=== PATIENT | female | born 1975 | race Asian ===

== ENCOUNTER 2022-10-29 18:05 | Inpatient (IN) | payer SELFPAY ==
[2022-10-29] VITALS (11 sets, daily range): BP systolic 144–177; BP diastolic 109–129; PULSE 89–108; RESP 16–28; TEMP 36.6–36.7; O2SAT 95–97; BMI 19.2; BMI 21.5; BMI 22.6
--- NOTE | 2022-10-29 18:17 | ED.RN ---
SPOKE WITH DR. MARIE ABOUT PATIENT SYMPTOMS. NO STROKE ALERT AT THIS TIME.
[2022-10-29 18:55] LABS: Bedside Glucose 360 mg/dL (74-106)
--- NOTE | 2022-10-29 19:04 | EKG12_ITS ---
Test Reason : DYSRHYTHMIA Blood Pressure : / mmHG Vent. Rate : 096 BPM Atrial Rate : 096 BPM P-R Int : 206 ms QRS Dur : 090 ms QT Int : 368 ms P-R-T Axes : 040 -01 034 degrees QTc Int : 464 ms Normal sinus rhythm Nonspecific ST abnormality Poor R wave progression Abnormal ECG Confirmed by TOMAS PONCE, LUZMARIA ([id number]), staff editor DANNY GARCIA ([id number]) on 11/03/2022 1:00:09 PM Referred By: GILDA Confirmed By:LUZMARIA MARIN MD
--- NOTE | 2022-10-29 19:04 | CT_ITS ---
We are attempting to reach an attending provider to discuss findings. An addendum with communication details will be sent when the communication is complete. INDICATION: Neuro deficit, acute, stroke suspected EXAMINATION: CT BRAIN - CT Head Stroke Protocol W/O Contrast Injection TECHNIQUE: Multiple axial images were obtained of the head without intravenous contrast. A radiation dose optimization technique was used for this scan. IV Contrast dosage and agent: None. COMPARISON: None FINDINGS: BRAIN PARENCHYMA: No intra- or extra-axial hemorrhage. No evidence of acute infarct. Moderate subcortical and periventricular white matter disease. Old left cory focal infarct. No intracranial mass or mass effect. There is preservation of the waller/white matter interface. Posterior fossa structures are unremarkable. CSF SPACES: Appropriate for age. No hydrocephalus. Basal cisterns are patent. CALVARIUM, SKULL BASE, PARANASAL SINUSES AND MASTOID AIR CELLS: Clear. No discrete lytic or blastic abnormalities. ORBITS: Both globes, extraocular muscles, optic nerves and retrobulbar fat appear unremarkable. ASPECTS Score for Acute Strokes: 10 CT/STROKE Brain/Head without Cont IMPRESSION: No acute abnormal intracranial finding. Electronically Signed: Chin Del Rosario MD at 19:27 EST ,
--- NOTE | 2022-10-29 19:04 | EDS_ITS ---
HPI History of Present Illness Chief Complaint: Hypertension Narrative Narrative: Patient arrives via private car, symptoms started 7 hours ago. Apparently she has significant weakness, disconjugate gaze on the left and left arm and leg weakness that have somewhat improved. No trauma, no head injury, history was initially limited secondary to patient being [place] and not speaking any Emirati, I got the history through hospital approved translation services, I got the history from , as well as patient. She does have a history of hypertension but she recently moved from [place], she is taking her medications but they are the counter medications from [place] and she does not have a list of them now [facility] Medical History (Updated 10/29/22 @ 21:[address] Chin Romero MD) Hypertension Allergy/AdvReac Type Severity Reaction Status Date / Time No Known Allergies Allergy Verified 10/29/22 18:17 Social History Smoking Status: Current every day smoker tobacco type: e-cigarettes ROS ROS ED ROS Narrative Past medical history: Reviewed Medications: Reviewed Social history: Noncontributory Review of systems: All systems negative except as indicated General: No fever Eyes: Blurred vision on the left ENT: No upper airway congestion, slurred speech Neck: No neck pain Cardiovascular: No chest pain Respiratory: No shortness of breath or cough Gastrointestinal: No abdominal pain, nausea vomiting or diarrhea Genitourinary: No dysuria Musculoskeletal: Denies myalgias no difficulty with ambulation Skin: No rash Neurological: As in HPI Psych: No recent behavioral changes Hematologic: No easy bleeding or easy bruising EXAM Physical Exam Narrative Exam Narrative: Physical exam General: Well nourished, Well developed, No Acute Distress Head: Normocephalic, Atraumatic Eyes: Left-sided disconjugate gaze ENT: Moist mucous membranes Neck: Supple, Nontender, No lymphadenopathy Cardiovascular: Regular rate, Regular rhythm Respiratory: No distress, CTA bilaterally Abdomen: Soft, Nontender, Nondistended Back: Nontender, Normal Inspection. Negative for: CVA tenderness Extremities: Nontender, No edema Skin: Normal color, No rash Neurological: See NIH stroke scale Psychological: Normal affect Const Vital Signs: 10/29/22 18:06 10/29/22 19:08 10/29/22 19:08 Temperature 98 F Temperature Source Temporal Pulse Rate 108 H 102 H Respiratory Rate 16 16 Blood Pressure 151/129 H 165/116 H Blood Pressure Mean 136 132 Pulse Ox 96 97 97 Oxygen Delivery Method Room Air Room Air Room Air 10/29/22 19:14 10/29/22 19:34 10/29/22 20:04 Temperature Temperature Source Pulse Rate 105 H 102 H 95 Respiratory Rate 20 H 28 H 24 H Blood Pressure 165/116 H 177/122 H 153/109 H Blood Pressure Mean 132 140 123 Pulse Ox 97 97 97 Oxygen Delivery Method Room Air Room Air Room Air 10/29/22 20:30 10/29/22 21:00 10/29/22 21:30 Temperature Temperature Source Pulse Rate 102 H 101 H 96 Respiratory Rate 24 H 21 H 24 H Blood Pressure 169/126 H 152/109 H 144/113 H Blood Pressure Mean 140 123 123 Pulse Ox 96 95 95 Oxygen Delivery Method Room Air Room Air Room Air MDM MDM MDM Narrative Medical decision making narrative: Patient has an acute stroke however she did not meet criteria for tPA due to the fact that she was 6 hours after the onset of symptoms, she had a CT angiogram which was unremarkable she will need a work-up inpatient including MRI, patient was discussed with stroke neurologist and stroke radiologist. She can stay and get a work-up. I also talked to the hospitalist. Hypertension improved, patient is hyperglycemic she will need glycemic control which can be done inpatient. Lab Data Labs: Laboratory Results - last 24 hr 10/29/22 10/29/22 10/29/22 18:29 18:30 18:30 WBC 8.4 RBC 5.78 H Hgb 16.0 H Hct 47.1 H MCV 81.5 MCH 27.7 MCHC 34.0 RDW Std Deviation 38.8 RDW Coeff of Naresh 13.3 Plt Count 282 MPV 11.7 Immature Gran % (Auto) 0.200 Neut % (Auto) 65.1 Lymph % (Auto) 28.0 [place] % (Auto) 4.1 Eos % (Auto) 1.3 Baso % (Auto) 1.3 H Absolute Neuts (auto) 5.5 Absolute Lymphs (auto) 2.36 Nucleated RBC % 0 PT 11.8 INR 0.9 APTT 28.1 Sodium Potassium Chloride Carbon Dioxide Anion Gap BUN Creatinine Estim Creat Clear Calc Est GFR (MDRD) Af Amer Est GFR (MDRD) Non-Af BUN/Creatinine Ratio Glucose Calcium Troponin I High Sens POC Glucose 360 H 10/29/22 18:30 WBC RBC Hgb Hct MCV MCH MCHC RDW Std Deviation RDW Coeff of Naresh Plt Count MPV Immature Gran % (Auto) Neut % (Auto) Lymph % (Auto) [place] % (Auto) Eos % (Auto) Baso % (Auto) Absolute Neuts (auto) Absolute Lymphs (auto) Nucleated RBC % PT INR APTT Sodium 133 L Potassium 3.6 Chloride 94 L Carbon Dioxide 28.0 Anion Gap 11 BUN 17 Creatinine 0.95 Estim Creat Clear Calc 56.66 Est GFR (MDRD) Af Amer 80 Est GFR (MDRD) Non-Af 66 BUN/Creatinine Ratio 17.8 Glucose 396 H Calcium 10.5 H Troponin I High Sens 11 POC Glucose Radiography Diagnostic Testing: Clinical Impression(s) from Imaging Studies Brain CT 10/29/22 19:04 IMPRESSION: No acute abnormal intracranial finding. Electronically Signed: Chin Del Rosario MD at 19:27 EST , ADDENDUM: 10/29/221939 IMPRESSION: No acute abnormal intracranial finding. N.B. : The above Results were Read Back by Chin Del Rosario MD to Gloria Kovacs RN, and understanding confirmed on 10/29/2022 19:33:50 (ET). Electronically Signed: Chin Del Rosario MD at 19:27 EST , Head/Neck CTA 10/29/22 19:04 IMPRESSION: Negative CTA Carotid and CTA Brain. Electronically Signed: Chin Del Rosario MD at 19:48 EST , ADDENDUM: 10/29/222007 IMPRESSION: Negative CTA Carotid and CTA Brain. N.B. : The above Results were Read Back by Chin Del Rosario MD to Chin Romero MD, and understanding confirmed on 10/29/2022 20:01:19 (ET). Electronically Signed: Chin Del Rosario MD at 19:48 EST , Chest X-Ray 10/29/22 19:50 IMPRESSION: No radiographic evidence of acute cardiopulmonary disease. Electronically Signed: Chin Del Rosario MD at 20:30 EST , Chest x-ray read by hi is unremarkable. EKG Initial EKG: Comments: Normal sinus rhythm with a rate of 96. Normal IL and QTc intervals. Nonspecific ST changes throughout. Interpreted by emergency Dr. Discharge Plan Triage Chief Complaint: Hypertension ED Provider: Chin Romero Dx/Rx/DC Orders Clinical Impression: Acute CVA (cerebrovascular accident), Hypertension, Acute hyperglycemia Primary Care Provider: Care Physician,No Primary Referrals: Care Physician,No Primary [Primary Care Provider] - Disposition Disposition: Acute Care Hospital [facility] NIHSS NIHSS 1a. Level of Consciousness: Alert; keenly responsive 1b. LOC Questions: Answers BOTH questions correctly. 1c. LOC Commands: Performs both tasks correctly. 2. Best Gaze: Partial gaze palsy; 3. Visual: No visual loss 4. Facial Palsy: Normal symmetrical movements 5a. Left Arm: No drift; arm holds 90 (or 45) degrees for full 10 seconds 5b. Right Arm: No drift; arm holds 90 (or 45) degrees for full 10 seconds 6a. Left Leg: No drift; leg holds 30-degree position for full 5 seconds 6b. Right Leg: No drift; leg holds 30-degree position for full 5 seconds 7. Limb Ataxia: Present in 1 limb 8. Sensory: Normal; no sensory loss 9. Best Language: No aphasia; normal 10. Dysarthria: Dorn-ee-[id number] dysarthria; 11. Extinction and Inattention: No abnormality Total: 3 Stroke Questions Stroke Team Activated: Yes a.Reviewed Inclusion/Exclusion criteria: Yes Was Patient considered for Endovascular Intervention?: Yes IV TPA Administered: No (Patient was 6 hours after the onset of symptoms) Critical care time (excluding procedures): Performing Direct Patient Care at Bedside
--- NOTE | 2022-10-29 19:04 | CT_ITS ---
We are attempting to reach an attending provider to discuss findings. An addendum with communication details will be sent when the communication is complete. INDICATION: Neuro deficit, acute, stroke suspected EXAMINATION: CTA head and neck TECHNIQUE: Routine carotid CT angiogram protocol was performed without and with IV contrast. In addition, images were obtained of the [place]. NASCET criteria using the distal ICAs for comparison were used for evaluation of stenoses. 3D reconstructions were reviewed. A radiation dose optimization technique was used for this scan. IV Contrast dosage and agent: 94 cc [id number] COMPARISON: Concurrent head CT FINDINGS: --CTA NECK: AORTIC ARCH AND BRANCHES: Normal anatomy, patent. RIGHT CCA: No occlusion, significant stenosis or dissection. RIGHT ICA: No occlusion, significant stenosis or dissection. LEFT CCA: No occlusion, significant stenosis or dissection. LEFT ICA: No occlusion, significant stenosis or dissection. RIGHT VERTEBRAL ARTERY: No occlusion, significant stenosis or dissection. LEFT VERTEBRAL ARTERY: No occlusion, significant stenosis or dissection. NECK SOFT TISSUES: Unremarkable. --CTA HEAD: --Anterior circulation: ICAs: No significant stenosis at the intracranial/visualized segments. ACAs: No significant stenosis at the visualized segments. ACOM: Present. MCAs: No significant stenosis at the visualized segments. --Posterior circulation: PCOMs: Not identified. territory supervisor: No significant stenosis at the visualized segments. BASILAR ARTERY: No significant stenosis. VERTEBRAL ARTERIES: No significant stenosis at the intradural/visualized segments. No evidence of intracranial aneurysm or vascular malformation. CT/STROKE CTA Head AND Neck W/Con IMPRESSION: Negative CTA Carotid and CTA Brain. Electronically Signed: Chin Del Rosario MD at 19:48 EST ,
--- NOTE | 2022-10-29 19:13 | ED.RN ---
osu called at 7:05p
[2022-10-29 19:45] LABS: Absolute Lymphocyte Count 2.36 X10^3/uL (0.83-4.51); Absolute Neutrophil Count 5.5 X10^3/uL (2.0-7.7); Basophil# 0.11 X10^3/uL; Basophil% 1.3 % (0-1); Eosinophil# 0.11 X10^3/uL; Eosinophils% 1.3 % (0-5); Hematocrit 47.1 % (37-47); Lymphocyte # 2.36 X10^3/ul (0.83-4.51); Mean Corpuscular Hgb 27.7 pg (27.0-32.0); Mean Corpuscular Volume 81.5 fL (81-99); Mean Platelet Vol. 11.7 fl (6.2-12.0); Monocyte# 0.35 X10^3/uL; Monocyte% 4.1 % (0-10); NRBC Flagged by Analyzer 0 % (0-5); Neutrophil # 5.49 X10^3/uL (2.7-7.7); Neutrophil % 65.1 % (47-70); Platelet Count 282 K/mm3 (150-450); RBC Distribution Width CV 13.3 % (11.6-14.6); RBC Distribution Width SD 38.8 fl (35.1-43.9); Red Blood Count 5.78 M/mm3 (4.2-5.4); White Blood Count 8.4 K/mm3 (4.4-11.0)
[2022-10-29 19:48] LABS: International Normalized Ratio 0.9; Prothrombin Time (Protime)PT. 11.8 SECONDS (11.7-14.9)
[2022-10-29 19:49] LABS: Partial Thromboplast Time 28.1 Seconds (24.1-36.2)
--- NOTE | 2022-10-29 19:50 | RAD_ITS ---
INDICATION: Neuro deficit, acute, stroke suspected EXAMINATION/TECHNIQUE: X-RAY - XR Chest 1 View COMPARISON: None. FINDINGS: LINES/DEVICES: None. LUNGS: No consolidation, edema or effusion. No pneumothorax. MEDIASTINUM AND CARDIOVASCULAR STRUCTURES: Cardiac silhouette not enlarged. Central airways and mediastinal contour are unremarkable. RAD/Chest 1 View IMPRESSION: No radiographic evidence of acute cardiopulmonary disease. Electronically Signed: Chin Del Rosario MD at 20:30 EST ,
[2022-10-29 20:07] LABS: Anion Gap 11 (5-15); BUN 17 mg/dL (7-18); BUN/Creat Ratio 17.8 RATIO (10-20); Calcium,Total 10.5 mg/dL (8.5-10.1); Chloride 94 mmol/L (98-107); Creatinine, Serum 0.95 mg/dL (0.55-1.02); EST Glomerular Filtration Rate 66 mL/min (>60); Est Glom Filt Rate - Afr Amer 80 mL/min (>60); Estimated Creatinine Clearance 56.66 ml/min; Glucose 396 mg/dL (74-106); Potassium 3.6 mmol/L (3.5-5.1); Sodium Level 133 mmol/L (136-145); Troponin-I HS 11 pg/mL (3.0-54.0)
--- NOTE | 2022-10-29 22:08 | HP.PCM.HOS_ITS ---
HPI - General General Date of Admission: 10/29/22 Date of Service: 10/29/22 Chief Complaint: L sided weakness HPI Narrative The patient is a 47 y/o F w/ PMHx: HTN, Diabetes mellitus type II on unclear medication regimen, recently moved to [place] who presents to the [facility] ED on 10/29/22 with history of onset approximately 7 to 8 hours prior to ED arrival notable left-sided upper and lower extremity weakness with associated disconjugate gaze which has been persistent although spouse does report is mildly improved since initial onset prompting ED evaluation. In the ED he initial NIH stroke scale 3 for partial gaze palsy, limb ataxia and mild to moderate dysarthria. Work-up in the ED included T 98, heart rate 108, BP 151/129, respiratory rate 16, 96% on room air, CBC with WC 8.4, hemoglobin 16, platelet 282 without marked shift, unremarkable coags, BMP with sodium 133, chloride 94, glucose 396, calcium 10.5, troponin 11, CT the brain with no acute intracranial findings, CTA head and neck with no acute findings of the carotid or the brain, chest x-ray with no acute cardiopulmonary findings, EKG with sinus rhythm with no acute evidence of ischemia. In the ED patient ministered full- strength aspirin therapy. [facility] Medical History (Updated 10/29/22 @ 23:[address] Gali Gasca MD) Diabetes mellitus, type 2 Hypertension Home Medications Unobtainable 10/29/22 [History Last Taken Unknown] Allergy/AdvReac Type Severity Reaction Status Date / Time No Known Allergies Allergy Verified 10/29/22 18:17 Family History (Updated 10/29/22 @ 23:[address] Gali Gasca MD) Mother Diabetes Father Diabetes Surgical History (Updated 10/29/22 @ 23:[address] Gali Gasca MD) No history of previous surgery Social History (Updated 10/29/22 @ 23:[address] Gali Gasca MD) household members: other details: Spouse, recently moved to [place]. Smoking Status: Never smoker alcohol intake: never substance use type: does not use ROS ROS Narrative Admission Review of Systems: CONSTITUTIONAL: No weight loss, fever, chills, + weakness or fatigue. HEENT: + Notable left-sided disconjugate gaze Eyes: No visual loss, blurred vision, double vision or yellow sclerae. Ears, Nose, Throat: No hearing loss, sneezing, congestion, runny nose or sore throat. SKIN: No rash or itching, lesions, wounds. CARDIOVASCULAR: No chest pain, chest pressure or chest discomfort, palpitations, edema, orthopnea, syncopal events. RESPIRATORY: No shortness of breath, cough or sputum, wheezing, hemoptysis. GASTROINTESTINAL: No anorexia, nausea, vomiting or diarrhea, abdominal pain, melena, BRBPR. GENITOURINARY: No dysuria, frequency, urgency or retention. NEUROLOGICAL: + Left-sided weakness, ataxia, disconjugate gaze, dysarthria. No headache, syncope, paralysis, change in bowel or bladder control, seizure. MUSCULOSKELETAL: No muscle, back pain, joint pain or stiffness. HEMATOLOGIC: No anemia, bleeding or bruising. LYMPHATICS: No enlarged nodes. No history of splenectomy. PSYCHIATRIC: No history of depression or anxiety. ENDOCRINOLOGIC: No reports of sweating, cold or heat intolerance. No polyuria or polydipsia. ALLERGIES: No history of asthma, hives, eczema or rhinitis. Vital Signs Vital Signs Vital Signs: 10/29/22 18:06 10/29/22 19:08 10/29/22 19:08 Temperature 98 F Temperature Source Temporal Pulse Rate 108 H 102 H Respiratory Rate 16 16 Blood Pressure 151/129 H 165/116 H Blood Pressure Mean 136 132 Pulse Ox 96 97 97 Oxygen Delivery Method Room Air Room Air Room Air 10/29/22 19:14 10/29/22 19:34 10/29/22 20:04 Temperature Temperature Source Pulse Rate 105 H 102 H 95 Respiratory Rate 20 H 28 H 24 H Blood Pressure 165/116 H 177/122 H 153/109 H Blood Pressure Mean 132 140 123 Pulse Ox 97 97 97 Oxygen Delivery Method Room Air Room Air Room Air 10/29/22 20:30 10/29/22 21:00 10/29/22 21:30 Temperature Temperature Source Pulse Rate 102 H 101 H 96 Respiratory Rate 24 H 21 H 24 H Blood Pressure 169/126 H 152/109 H 144/113 H Blood Pressure Mean 140 123 123 Pulse Ox 96 95 95 Oxygen Delivery Method Room Air Room Air Room Air Weight Weight: 117 lb 15.157 oz Body Mass Index (BMI) 21.5 Physical Exam Narrative Physical Examination: General: Awake, alert, oriented to self, place and recent events, discussing items through translation, remains cooperative, laying in the ED bed, fatigued appearing. Skin: Normal color, normal turgor, no icterus, no cyanosis. HEENT: AT/NC, EOM right eye appears intact, ongoing appearance of left disco njugate gaze, PERRLA, dry MM, no carotid bruits or JVD noted. Lungs: Mild diminished, greater bases, appropriate effort, no rales, ronchi or wheezing. Heart: Regular rate and rhythm; no gallop, rub audible. Abdomen: Soft, NTTP, ND, distant normal BS, no HSM. Extremities: No cyanosis, clubbing, or edema. Neurological: Patient awake, alert, oriented as noted, cognitive function per discussion with spouse is based intact; pupils equally reactive to light and accommodation, cranial nerves grossly normal except notable left disconjugate gaze, moving all extremities except mild left upper extremity 4-5 weakness, no drift, [id number] and [id number] improved, sensation subjectively intact per patient, Babinski equivocal. Psychiatric: Affect appears flat, no acute evidence of depressive or anxiety feelings. Results Lab / Micro Data Result Diagrams: 10/29/22 18:30 10/29/22 18:30 Labs: Laboratory Results - last 24 hr 10/29/22 18:29: POC Glucose 360 H 10/29/22 18:30: WBC 8.4, RBC 5.78 H, Hgb 16.0 H, Hct 47.1 H, MCV 81.5, MCH 27.7, MCHC 34.0, RDW Std Deviation 38.8, RDW Coeff of Naresh 13.3, Plt Count 282, MPV 11.7, Immature Gran % (Auto) 0.200, Neut % (Auto) 65.1, Lymph % (Auto) 28.0, [place] % (Auto) 4.1, Eos % (Auto) 1.3, Baso % (Auto) 1.3 H, Absolute Neuts (auto) 5.5, Absolute Lymphs (auto) 2.36, Nucleated RBC % 0 10/29/22 18:30: PT 11.8, INR 0.9, APTT 28.1 10/29/22 18:30: Sodium 133 L, Potassium 3.6, Chloride 94 L, Carbon Dioxide 28.0, Anion Gap 11, BUN 17, Creatinine 0.95, Estim Creat Clear Calc 56.66, Est GFR (MDRD) Af Amer 80, Est GFR (MDRD) Non-Af 66, BUN/Creatinine Ratio 17.8, Glucose 396 H, Calcium 10.5 H, Troponin I High Sens [address] 10/29/22 19:04 IMPRESSION: No acute abnormal intracranial finding. Electronically Signed: Chin Del Rosario MD at 19:27 EST Reading Location ID and State: [facility] / [place] Tel , Service support , ADDENDUM: 10/29/221939 IMPRESSION: No acute abnormal intracranial finding. N.B. : The above Results were Read Back by Chin Del Rosario MD to Gloria Kovacs RN, and understanding confirmed on 10/29/2022 19:33:50 (ET). Electronically Signed: Chin Del Rosario MD at 19:27 EST Reading Location ID and State: [facility] / [place] Tel , Service support , Head/Neck CTA 10/29/22 19:04 IMPRESSION: Negative CTA Carotid and CTA Brain. Electronically Signed: Chin Del Rosario MD at 19:48 EST Reading Location ID and State: [facility] / [place] Tel , Service support , ADDENDUM: 10/29/222007 IMPRESSION: Negative CTA Carotid and CTA Brain. N.B. : The above Results were Read Back by Chin Del Rosario MD to Chin Romero MD, and understanding confirmed on 10/29/2022 20:01:19 (ET). Electronically Signed: Chin Del Rosario MD at 19:48 EST , Chest X-Ray 10/29/22 19:50 IMPRESSION: No radiographic evidence of acute cardiopulmonary disease. Electronically Signed: Chin Del Rosario MD at 20:30 EST , Assessment & Plan Assessment/Plan (1) Acute CVA (cerebrovascular accident): PLAN: Plan The patient is a 47 y/o F w/ PMHx: HTN, Diabetes mellitus type II on unclear medication regimen, recently moved to [place] who presents to the [facility] ED on 10/29/22 with history of onset approximately 7 to 8 hours prior to ED arrival notable left-sided upper and lower extremity weakness with associated disconjugate gaze which has been persistent although spouse does report is mildly improved since initial onset prompting ED evaluation. #1. Left-sided weakness, dysarthria, disconjugate gaze concerning for CVA: Will admit to PCU, will obtain MRI Brain, will obtain ECHO, PT/OT/Speech/Nutrition evaluation per protocol. Will allow permissive HTN given acute presentation with regimen addition once appropriate, maintain on asa, add statin w/ AM FLP, fall precautions. Magnesium, TSH, FLP, hemoglobin A1c requested. #2. Diabetes mellitus type II with hyperglycemia: Uncertain regimen, recently moved from [facility], hemoglobin A1c requested, will in the interim maintain until trend clear on Accu-Cheks with insulin sliding scale, allow ADA diet. #3. Hyponatremia, hypochloremia, mild: Suspect mild hypovolemic component given ongoing events over the course of day, decreased oral intake, will judiciously hydrate and repeat CMP in AM. #4. DVT prophylaxis: SCDs, Lovenox. Charges/Coding Visit Charges Inpatient E&M: 12905 Init Hosp L3
[2022-10-29] MEDS: Aspirin 81 MG TAB.CHEW 324 MG PO (22:32)
[2022-10-29] MEDS: Labetalol (Prefilled) 20 MG/4 ML 10 MG IV (22:33)
[2022-10-29 23:02] LABS: Magnesium 1.8 mg/dL (1.6-2.6)
--- NOTE | 2022-10-29 23:33 | ECHOD_ITS ---
Reason For Study: CVA Procedure This was a 2D Doppler, Color Flow transthoracic echocardiogram. Exam performed portable in patient room. Left Ventricle Normal LV size. Moderate concentric left ventricular hypertrophy. Apical false tendon noted. Left ventricular systolic function is hyperdynamic. The estimated ejection fraction is 75 %. Diastolic function is indeterminate. No regional wall motion abnormalities noted. Right Ventricle Normal RV size. Normal systolic function. Atria Normal left atrium. Normal right atrium. No doppler evidence for ASD. Bubble contrast study negative for right to left interatrial shunt. Mitral Valve There is no mitral annular calcification. Mild diffuse mitral valve thickening. Chordal systolic anterior motion of the mitral valve. Moderate (2+) eccentric mitral valve insufficiency. Tricuspid Valve Normal tricuspid valve. Trivial tricuspid valve insufficiency. Unable to estimate RV systolic pressure due to insufficient tricuspid regurgitant envelope. Aortic Valve Trisinus/trileaflet aortic valve. Mild focal aortic valve calcification. Pulmonic Valve The pulmonic valve is not well visualized. Great Vessels The aortic root is not well visualized. Pericardium/Pleural No pericardial effusion. Medication Performed a rapid injection of agitated mix of 9 cc saline and 1cc air to assess for atrial septal defect. MMode/2D Measurements & Calculations LVIDd: 3.5 cm IVSd: 1.3 cm LA dimension: 3.3 cm LVIDs: 2.8 cm LVPWd: 1.4 cm RVDd: 2.7 cm FS: 19.8 % LAV(MOD-bp): 27.2 ml LA A4 area: 10.3 cm2 RA A4 area: 8.0 cm2 LAV(MOD-bp) Indexed: 17.8 ml/m2 LAV(MOD-sp2): 35.7 ml LAV(MOD-sp4): 20.5 ml Time Measurements MV dec time: 0.36 sec Doppler Measurements & Calculations MV E max lew: 59.5 cm/sec Lat Peak E' Lew: 7.9 cm/sec Med Peak E' Lew: 3.5 cm/sec MV A max lew: 84.2 cm/sec E/E' lat: 7.6 E/E' med: 16.9 MV E/A: 0.71 MV V2 max: 89.9 cm/sec MV P1/2t max lew: 67.3 cm/sec Ao V2 max: 186.0 cm/sec MV max P.2 mmHg MV P1/2t: 61.8 msec Ao max P.9 mmHg MV V2 mean: 56.9 cm/sec MV dec slope: 319.3 cm/sec2 MV mean P.5 mmHg MV V2 VTI: 19.0 cm MVA(P1/2t): 3.6 cm2 LV V1 max: 159.1 cm/sec MR max lew: 589.2 cm/sec PA V2 max: 88.2 cm/sec LV V1 max P.1 mmHg MR max P.9 mmHg ECHO/Echo Complete Interpretation Summary Left ventricular systolic function is hyperdynamic. The estimated ejection fraction is 75 %. Moderate concentric left ventricular hypertrophy. Apical false tendon noted. Mild diffuse mitral valve thickening. Chordal systolic anterior motion of the mitral valve. Moderate (2+) eccentric mitral valve insufficiency. Trivial tricuspid valve insufficiency. Mild focal aortic valve calcification. Unable to estimate RV systolic pressure due to insufficient tricuspid regurgita nt envelope. Diastolic function is indeterminate. Late peaking spectral Doppler pattern near the LVOT area approaching 3.8 m/s (p eak gradient: Approximately 58 mmHg) compatible with a hyperdynamic state. Comment: The aforementioned echocardiographic findings are potentially compatib le with an underlying hypertrophic type cardiomyopathy. Bubble contrast study negative for right to left interatrial shunt. Ordering Physician: Gali Gasca Performed By: Eros Ansari RCS
[2022-10-30] VITALS (15 sets, daily range): BP systolic 122–159; BP diastolic 88–113; PULSE 67–83; RESP 16–18; TEMP 36.3–37.1; O2SAT 94–96; BMI 22.6
[2022-10-30] MEDS: 0.9% Normal Saline 1,000 ML 100 ML IV ×2 (00:09→10:42)
--- NOTE | 2022-10-30 00:59 | NURSING ---
emergency documentation in effect starting 10/29/22, 6784
[2022-10-30] MEDS: Atorvastatin Calcium 80 MG Tablet PO ×2 (01:11→21:38)
[2022-10-30 04:51] LABS: Bedside Glucose 291 mg/dL (74-106)
[2022-10-30] MEDS: Insulin Lispro 100 UNIT/ML INSULN.PEN SC ×4 (06:37→21:38)
[2022-10-30 06:51] LABS: Absolute Lymphocyte Count 2.39 X10^3/uL (0.83-4.51); Absolute Neutrophil Count 5.1 X10^3/uL (2.0-7.7); Basophil# 0.11 X10^3/uL; Basophil% 1.3 % (0-1); Eosinophil# 0.27 X10^3/uL; Eosinophils% 3.2 % (0-5); Lymphocyte # 2.39 X10^3/ul (0.83-4.51); Lymphocyte % 28.7 % (19-41); Mean Corp Hgb Conc 33.3 g/dL (32-36); Mean Corpuscular Hgb 27.6 pg (27.0-32.0); Mean Corpuscular Volume 82.7 fL (81-99); Mean Platelet Vol. 10.9 fl (6.2-12.0); Monocyte# 0.43 X10^3/uL; Monocyte% 5.2 % (0-10); NRBC Flagged by Analyzer 0 % (0-5); Neutrophil # 5.09 X10^3/uL (2.7-7.7); Neutrophil % 61.2 % (47-70); Platelet Count 248 K/mm3 (150-450); RBC Distribution Width CV 13.4 % (11.6-14.6); Red Blood Count 5.44 M/mm3 (4.2-5.4); White Blood Count 8.3 K/mm3 (4.4-11.0)
[2022-10-30 07:30] LABS: Bedside Glucose 268 mg/dL (74-106)
--- NOTE | 2022-10-30 07:30 | MRI_ITS ---
We are attempting to reach an attending provider to discuss findings. An addendum with communication details will be sent when the communication is complete. EXAM: MR HEAD WITHOUT AND WITH INTRAVENOUS CONTRAST CLINICAL INDICATION: poss CVA vs demyelination TECHNIQUE: Multiplanar and multisequence MR images of the brain were obtained without and with intravenous contrast. This report was created using [employer] report generation technology. CONTRAST: IV 10cc Clariscan COMPARISON: CT head without contrast and CTA head and neck with contrast 10/29/2022. FINDINGS: BRAIN AND EXTRA-AXIAL SPACES: Small diffusion restrictions in the inferior semilunar lobule of the right cerebellar hemisphere are also visible on the T2 FLAIR sequence. These are subacute lacunar ischemic infarcts. Small diffusion restriction in the right ventral thalamus/junction with the right internal capsule is also visible on the FLAIR sequence. This is also subacute lacunar ischemic infarct. Small diffusion restriction in the left centrum semiovale is also subacute lacunar ischemic infarct. Multiple old lacunar cystic infarcts in both cerebral hemispheres and in the left and right side of the pontine tegmentum. Multiple T2 FLAIR hyperintensity foci in the white matter of both cerebral hemispheres are chronic white matter ischemic changes. Following IV contrast administration, there are no abnormally enhancing lesions intra-axially and extra-axially. No intra- or extra-axial hemorrhage. No intracranial mass or mass effect. Ventricles are appropriate for age. No hydrocephalus. Basal cisterns are patent. SELLA: Unremarkable. Normal sella turcica, pituitary gland, infundibular stalk, optic chiasm and hypothalamus. AUDITORY SYSTEM: Unremarkable. The internal auditory canals are patent. BONES/JOINTS: Unremarkable. No discrete lytic or blastic abnormalities. SINUSES: Unremarkable as visualized. Clear. MASTOID AIR CELLS: Unremarkable as visualized. Clear. ORBITS: Unremarkable as visualized. Both globes, extraocular muscles, optic nerves and retrobulbar fat appear unremarkable. VASCULATURE: Unremarkable as visualized. Normal flow voids in the major intracranial circulation. OTHER FINDINGS: Following IV contrast administration, there are no abnormally enhancing lesions. MRI/Brain W/WO Contrast IMPRESSION: 1. Multiple subacute lacunar ischemic infarcts in the inferior semilunar lobule of the right cerebellar hemisphere, right thalamus and in the left centrum semiovale. 2. Multiple old lacunar cystic infarcts in both cerebral hemispheres. 3. Multiple confluent and chronic white matter ischemic changes in both cerebral hemispheres. 4. No abnormally enhancing lesions intra-axially and extra-axially. Electronically Signed: Mukund Landers MD at 15:32 EST ,
[2022-10-30 07:40] LABS: ALB/GLOB Ratio 0.6 RATIO (0.9-2.4); AST(SGOT) 18 U/L (15-37); Alanine Aminotransfer ALT/SGPT 28 U/L (13-56); Albumin, Serum 2.7 g/dL (3.2-5.0); Alkaline Phosphatase 60 U/L (45-117); Anion Gap 8 (5-15); BUN 14 mg/dL (7-18); BUN/Creat Ratio 14.2 RATIO (10-20); Calcium,Total 8.8 mg/dL (8.5-10.1); Chloride 97 mmol/L (98-107); Cholesterol 293 mg/dL (200); Creatinine, Serum 0.98 mg/dL (0.55-1.02); EST Glomerular Filtration Rate 64 mL/min (>60); Est Glom Filt Rate - Afr Amer 77 mL/min (>60); Globulin 4.4 g/dL (2.2-4.2); Glucose 243 mg/dL (74-106); High Density Lipoprotein 43 mg/dL; Potassium 3.3 mmol/L (3.5-5.1); Protein, Total 7.1 g/dL (6.4-8.2); Sodium Level 134 mmol/L (136-145); Thyroid Stim Hormone (TSH) 1.28 uIU/mL (0.358-3.74); Triglycerides 1661 mg/dL
[2022-10-30 08:44] LABS: Hemoglobin A1c 12.1 % (3.8-5.6)
[2022-10-30] MEDS: Enoxaparin 40 MG/0.4 ML Syringe SC (10:42)
[2022-10-30] MEDS: Aspirin 81 MG TAB.CHEW PO (10:42)
[2022-10-30 11:16] LABS: Bedside Glucose 383 mg/dL (74-106)
--- NOTE | 2022-10-30 11:42 | NURSING ---
NIH completed using testing tech. No family present at bedside at time of assessment.
--- NOTE | 2022-10-30 12:52 | CASEMGMT ---
SAIRA Note SAIRA met with patient and her . SW used google translate to speak to the as patient did not appear to feel well and appeared to be sleepy. SW provided with information about [facility] and PCP provider and financial packet which included information on [facility] and medicaid application. SW explained the medicaid program. Patient's said that he moved here for job at [employer]. voiced no family or support in the area. Resources provided. PCU SAIRA Matthew was updated. Rosaura GAGNON
--- NOTE | 2022-10-30 14:25 | CASEMGMT ---
Complex Paster Supervisor to room to complete RN CARI assessment. Ipad Google Whiskey Filterer in hand. Unable to complete assessment d/t pt being out of room. RN CARI will attempt assessment at a later time. Family acquaintance in room. Acquaintance states he speaks and understands Syriac. Pt's in room but does not speak or understand Syriac. Acquaintance states he brought her (pt) over to the [facility]. Acquaintance states he works for an agency that helps those from [place], which is why he is helping the family. 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 Pt only speaks Setswana. The acquaintance also spoke about a nail salon and how the nail salon employees told pt to go to the hospital. Acquaintance wants to speak with SW regarding financial assistance. JAREN ALCALA and SAIRA advised of the above.
--- NOTE | 2022-10-30 16:00 | TELEMED_ITS ---
SOC Telemed has confirmed receipt of a request for visit. This document confirms receipt of the order initiating the consult. To find the results of the consultation, please view the patient's reports for the scanned Telemed Consult.
--- NOTE | 2022-10-30 16:01 | PN.HOSP_ITS ---
Subjective Subjective Interviewed patient via iPad educational sign language interpreter with present. She reports her vision is her current main complaint and that her weakness is getting better. No chest pain or shortness of breath. 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 Objective Data Objective Data Vital Signs: Vital Signs Temp Pulse Resp BP Pulse Ox O2 Del Method 98.4 F 80 16 137/88 H 96 Room Air 10/30/22 14:00 10/30/22 14:00 10/30/22 14:00 10/30/22 14:00 10/30/22 14:00 10/30/22 14:00 Oxygen Delivery Method Room Air Weight: 54 kg Body Mass Index (BMI) 22.6 Intake & Output: Intake and Output for Last 24 Hours 10/28/22 10/29/22 10/30/22 23:59 23:59 23:59 Intake Total 1683.33 / 1683.33 Balance 1683.33 / 1683.33 Lab / Micro Data Result Diagrams: 10/30/22 06:20 10/30/22 06:20 Labs: Laboratory Results - last 24 hr 10/29/22 18:29: POC Glucose 360 H 10/29/22 18:30: WBC 8.4, RBC 5.78 H, Hgb 16.0 H, Hct 47.1 H, MCV 81.5, MCH 27.7, MCHC 34.0, RDW Std Deviation 38.8, RDW Coeff of Naresh 13.3, Plt Count 282, MPV 11.7, Immature Gran % (Auto) 0.200, Neut % (Auto) 65.1, Lymph % (Auto) 28.0, [place] % (Auto) 4.1, Eos % (Auto) 1.3, Baso % (Auto) 1.3 H, Absolute Neuts (auto) 5.5, Absolute Lymphs (auto) 2.36, Nucleated RBC % 0 10/29/22 18:30: PT 11.8, INR 0.9, APTT 28.1 10/29/22 18:30: Sodium 133 L, Potassium 3.6, Chloride 94 L, Carbon Dioxide 28.0, Anion Gap 11, BUN 17, Creatinine 0.95, Estim Creat Clear Calc 56.66, Est GFR (MDRD) Af Amer 80, Est GFR (MDRD) Non-Af 66, BUN/Creatinine Ratio 17.8, Glucose 396 H, Calcium 10.5 H, Troponin I High Sens 11 10/29/22 18:30: Magnesium 1.8 10/30/22 01:09: POC Glucose 291 H 10/30/22 06:20: WBC 8.3, RBC 5.44 H, Hgb 15.0, Hct 45.0, MCV 82.7, MCH 27.6, MC HC 33.3, RDW Std Deviation 40.0, RDW Coeff of Naresh 13.4, Plt Count 248, MPV 10.9, Immature Gran % (Auto) 0.400, Neut % (Auto) 61.2, Lymph % (Auto) 28.7, Grainger % (Auto) 5.2, Eos % (Auto) 3.2, Baso % (Auto) 1.3 H, Absolute Neuts (auto) 5.1, Absolute Lymphs (auto) 2.39, Nucleated RBC % 0 10/30/22 06:20: Sodium 134 L, Potassium 3.3 L, Chloride 97 L, Carbon Dioxide 29.0, Anion Gap 8, BUN 14, Creatinine 0.98, Estim Creat Clear Calc 52.40, Est GFR (MDRD) Af Amer 77, Est GFR (MDRD) Non-Af 64, BUN/Creatinine Ratio 14.2, Glucose 243 H, Calcium 8.8, Total Bilirubin 0.70, AST 18, ALT 28, Alkaline Phosphatase 60, Total Protein 7.1, Albumin 2.7 L, Globulin 4.4 H, Albumin/Globulin Ratio 0.6 L, Triglycerides 1661 H, Cholesterol 293 H, LDL Cholesterol TNP, VLDL Cholesterol TNP, HDL Cholesterol 43, TSH 1.28 10/30/22 06:20: Hemoglobin A1c 12.1 H 10/30/22 06:31: POC Glucose 268 H 10/30/22 10:48: POC Glucose 383 H Radiography Diagnostic Testing: Radiology Impression Brain CT 10/29/22 19:04 IMPRESSION: No acute abnormal intracranial finding. Electronically Signed: Chin Del Rosario MD at 19:27 EST , ADDENDUM: 10/29/221939 IMPRESSION: No acute abnormal intracranial finding. N.B. : The above Results were Read Back by Chin Del Rosario MD to Gloria Kovacs RN, and understanding confirmed on 10/29/2022 19:33:50 (ET). Electronically Signed: Chin Del Rosario MD at 19:27 EST , Head/Neck CTA 10/29/22 19:04 IMPRESSION: Negative CTA Carotid and CTA Brain. Electronically Signed: Chin Del Rosario MD at 19:48 EST , ADDENDUM: 10/29/222007 IMPRESSION: Negative CTA Carotid and CTA Brain. N.B. : The above Results were Read Back by Chin Del Rosario MD to Chin Romero MD, and understanding confirmed on 10/29/2022 20:01:19 (ET). Electronically Signed: Chin Del Rosario MD at 19:48 EST , Chest X-Ray 10/29/22 19:50 IMPRESSION: No radiographic evidence of acute cardiopulmonary disease. Electronically Signed: Chin Del Rosario MD at 20:30 EST , Echocardiogram 10/29/22 23:33 Interpretation Summary Left ventricular systolic function is hyperdynamic. The estimated ejection fraction is 75 %. Moderate concentric left ventricular hypertrophy. Apical false tendon noted. Mild diffuse mitral valve thickening. Chordal systolic anterior motion of the mitral valve. Moderate (2+) eccentric mitral valve insufficiency. Trivial tricuspid valve insufficiency. Mild focal aortic valve calcification. Unable to estimate RV systolic pressure due to insufficient tricuspid regurgitant envelope. Diastolic function is indeterminate. Late peaking spectral Doppler pattern near the LVOT area approaching 3.8 m/s (peak gradient: Approximately 58 mmHg) compatible with a hyperdynamic state. Comment: The aforementioned echocardiographic findings are potentially compatible with an underlying hypertrophic type cardiomyopathy. Bubble contrast study negative for right to left interatrial shunt. Ordering Physician: Gali Gasca Performed By: Eros Ansari RCS Brain MRI 10/30/22 07:30 IMPRESSION: 1. Multiple subacute lacunar ischemic infarcts in the inferior semilunar lobule of the right cerebellar hemisphere, right thalamus and in the left centrum semiovale. 2. Multiple old lacunar cystic infarcts in both cerebral hemispheres. 3. Multiple confluent and chronic white matter ischemic changes in both cerebral hemispheres. 4. No abnormally enhancing lesions intra-axially and extra-axially. Electronically Signed: Mukund Landers MD at 15:32 EST , Physical Exam Const alert and no apparent distress HEENT head/scalp atraumatic Eyes Eyes Narrative: Left-sided disconjugate gaze Neck supple Resp normal respiratory effort and clear to auscultation bilaterally Cardio regular rate and regular rhythm GI soft to palpation, non-tender and non-distended Extremity Extremity Narrative: No edema appreciated Neuro moves all extremities Neuro Narrative: Moving upper and lower extremities equal, main neurological finding is left- sided disconjugate gaze Psych Psych Narrative: Cooperative Assessment & Plan Assessment/Plan (1) Acute CVA (cerebrovascular accident): PLAN: Plan #Acute CVA, likely embolic CTA on admission negative Echo obtained and EF 75%, moderate concentric left ventricular hypertrophy, mild diffuse mitral valve thickening, moderate 2+ eccentric mitral valve insufficiency, diastolic dysfunction indeterminant, bubble study negative MRI obtained which showed multiple subacute lacunar ischemic infarcts on the inferior semilunar lobule of the right cerebellar hemisphere, right thalamus and in the left centrum semiovale with multiple old lacunar cystic infarcts in both cerebral hemispheres. No abnormal enhancement. No A. fib noted on telemetry On aspirin and statin Neurology renotified for further recommendations #Diabetes mellitus, likely type II A1c 12.1 Significantly elevated, will start on 10 units of glargine, as she is low insulin na?ve will split dose for easier titration. #DVT ppx: Josephine Saravia MD Charges/Coding Visit Charges Inpatient E&M: 28678 Subs Hosp L2
--- NOTE | 2022-10-30 16:37 | CASEMGMT ---
SW met with patient and her . Patient had requested that her remain in the room. SW used the [facility] nurse staff community health to complete the PHQ 9 as the [place] PHQ9 patient had difficulty with understanding. SW asked patient to report any symptoms and patient said that she is not depressed and feels normal. Patient had score of 0. SW provide resources on counseling agencies, crisis number and [facility] resource list. Plan: PHQ completed as per stroke protocol. Resources provided. Rosaura RUELAS
--- NOTE | 2022-10-30 16:40 | CM.ED ---
SAIRA Note SAIRA met with patient's as patient was outside of the room. SAIRA used google translate to speak to . Gave information on [facility] and Financial resources packet. SAIRA was advised by CARI that patient's wanted to speak to social media campaign manager. SAIRA spoke to patient's and an individual in the room who identified himself as Say. Say reports he is a friend and later stated that he lives in the [place] in [place]. Say inquired about the hospital bill as patient is unable to work. SAIRA provided patient's with [employer] and encouraged them to complete the application. SAIRA also educated Say and patient's about [facility] and the case management that they can provide. SW provided list of PCP. SAIRA also had provided the financial resource packet which included [facility] services, [facility] financial information, [facility] and [facility] services. SAIRA explained that at discharge patient will need a walker. SAIRA advised that [facility]. SAIRA advised that patient will need PT/OT at discharge and that patient can go to [facility] for PT/OT due to their financial assistance program. SAIRA provided patient and Say with phone number and location of PT/OT at PSYCHIATRIC. SAIRA reviewed the financial resources packet with Say so he was aware of the information provided to patient and her . SAIRA spoke to Say, after completing the PHQ 9 on patient. Patient and her are from [place] and moved to [place] and to [place]. Patient had high blood pressure so patient's called Say and reported the high blood pressure and then Say called the [facility] in [place] and asked the [employer] employees to find out the nearest hospital location and then he directed patient to go to [facility]. 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 SAIRA provided financial packet, counseling resources and information about [facility] PT/OT rehab and information on walker to patient's . Rosaura GAGNON
[2022-10-30] MEDS: Potassium Chloride Oral Tablet 20 MEQ 40 MEQ PO (16:53)
[2022-10-30 17:10] LABS: Bedside Glucose 243 mg/dL (74-106)
[2022-10-30] MEDS: Insulin Glargine-YFGN 100 UNIT/ML Pen SC (21:42)
[2022-10-30 22:10] LABS: Bedside Glucose 328 mg/dL (74-106)
[2022-10-31] VITALS (11 sets, daily range): BP systolic 154–177; BP diastolic 95–110; PULSE 63–80; RESP 16–18; TEMP 36.6–37.7; O2SAT 95–98; BMI 22.6
--- NOTE | 2022-10-31 05:25 | NURSING ---
SOC Tavares Dale contacted and ordered Plavix 75mg daily and recommended a JOHN. Orders passed onto Dr. Wood
[2022-10-31] MEDS: Insulin Lispro 100 UNIT/ML INSULN.PEN SC ×4 (06:57→21:36)
[2022-10-31 07:23] LABS: Absolute Lymphocyte Count 2.83 X10^3/uL (0.83-4.51); Basophil# 0.11 X10^3/uL; Basophil% 1.4 % (0-1); Eosinophil# 0.45 X10^3/uL; Eosinophils% 5.7 % (0-5); Hematocrit 41.9 % (37-47); Hemoglobin 13.7 g/dL (12.0-15.0); Lymphocyte # 2.83 X10^3/ul (0.83-4.51); Mean Corp Hgb Conc 32.7 g/dL (32-36); Mean Corpuscular Hgb 27.8 pg (27.0-32.0); Mean Platelet Vol. 10.9 fl (6.2-12.0); Monocyte# 0.43 X10^3/uL; Monocyte% 5.5 % (0-10); NRBC Flagged by Analyzer 0 % (0-5); Neutrophil # 4.01 X10^3/uL (2.7-7.7); Platelet Count 230 K/mm3 (150-450); RBC Distribution Width CV 13.2 % (11.6-14.6); RBC Distribution Width SD 41.1 fl (35.1-43.9); Red Blood Count 4.93 M/mm3 (4.2-5.4); White Blood Count 7.9 K/mm3 (4.4-11.0)
[2022-10-31 07:41] LABS: Bedside Glucose 198 mg/dL (74-106)
[2022-10-31 07:44] LABS: ALB/GLOB Ratio 0.7 RATIO (0.9-2.4); AST(SGOT) 29 U/L (15-37); Alanine Aminotransfer ALT/SGPT 26 U/L (13-56); Albumin, Serum 2.7 g/dL (3.2-5.0); Alkaline Phosphatase 57 U/L (45-117); Anion Gap 6 (5-15); BUN 18 mg/dL (7-18); BUN/Creat Ratio 21.6 RATIO (10-20); Calcium,Total 9.1 mg/dL (8.5-10.1); Chloride 103 mmol/L (98-107); Creatinine, Serum 0.83 mg/dL (0.55-1.02); EST Glomerular Filtration Rate 77 mL/min (>60); Est Glom Filt Rate - Afr Amer 93 mL/min (>60); Estimated Creatinine Clearance 61.87 ml/min; Globulin 4.1 g/dL (2.2-4.2); Glucose 210 mg/dL (74-106); Potassium 3.7 mmol/L (3.5-5.1); Protein, Total 6.8 g/dL (6.4-8.2); Sodium Level 137 mmol/L (136-145)
--- NOTE | 2022-10-31 08:01 | PCM.PN.HOSP ---
Subjective Subjective Sitting up on side of bed working with therapy, neurology recommended JOHN Objective Data Objective Data Vital Signs: Vital Signs Temp Pulse Resp BP Pulse Ox O2 Del Method 99 F 68 16 160/95 H 95 Room Air 10/31/22 04:00 10/31/22 06:45 10/31/22 04:00 10/31/22 04:00 10/31/22 04:00 10/31/22 04:00 Oxygen Delivery Method Room Air Weight: 54 kg Body Mass Index (BMI) 22.6 Intake & Output: Intake and Output for Last 24 Hours 10/29/22 10/30/22 10/31/22 23:59 23:59 23:59 Intake Total 1683.33 / 1683.33 Balance 1683.33 / 1683.33 Lab / Micro Data Result Diagrams: 10/31/22 06:57 10/31/22 06:57 Labs: Laboratory Results - last 24 hr 10/30/22 06:20: Hemoglobin A1c 12.1 H 10/30/22 10:48: POC Glucose 383 H 10/30/22 16:49: POC Glucose 243 H 10/30/22 21:37: POC Glucose 328 H 10/31/22 06:56: POC Glucose 198 H 10/31/22 06:57: WBC 7.9, RBC 4.93, Hgb 13.7, Hct 41.9, MCV 85.0, MCH 27.8, MCHC 32.7, RDW Std Deviation 41.1, RDW Coeff of Naresh 13.2, Plt Count 230, MPV 10.9, Immature Gran % (Auto) 0.400, Neut % (Auto) 51.0, Lymph % (Auto) 36.0, [place] % (Auto) 5.5, Eos % (Auto) 5.7 H, Baso % (Auto) 1.4 H, Absolute Neuts (auto) 4.0, Absolute Lymphs (auto) 2.83, Nucleated RBC % 0 10/31/22 06:57: Sodium 137, Potassium 3.7, Chloride 103, Carbon Dioxide 28.0, Anion Gap 6, BUN 18, Creatinine 0.83, Estim Creat Clear Calc 61.87, Est GFR (MDRD) Af Amer 93, Est GFR (MDRD) Non-Af 77, BUN/Creatinine Ratio 21.6 H, Glucose 210 H, Calcium 9.1, Total Bilirubin 0.50, AST 29, ALT 26, Alkaline Phosphatase 57, Total Protein 6.8, Albumin 2.7 L, Globulin 4.1, Albumin/Globulin Ratio 0.7 L Radiography Diagnostic Testing: Radiology Impression Echocardiogram 10/29/22 23:33 Interpretation Summary Left ventricular systolic function is hyperdynamic. The estimated ejection fraction is 75 %. Moderate concentric left ventricular hypertrophy. Apical false tendon noted. Mild diffuse mitral valve thickening. Chordal systolic anterior motion of the mitral valve. Moderate (2+) eccentric mitral valve insufficiency. Trivial tricuspid valve insufficiency. Mild focal aortic valve calcification. Unable to estimate RV systolic pressure due to insufficient tricuspid regurgitant envelope. Diastolic function is indeterminate. Late peaking spectral Doppler pattern near the LVOT area approaching 3.8 m/s (peak gradient: Approximately 58 mmHg) compatible with a hyperdynamic state. Comment: The aforementioned echocardiographic findings are potentially compatible with an underlying hypertrophic type cardiomyopathy. Bubble contrast study negative for right to left interatrial shunt. Ordering Physician: Gali Gasca Performed By: Eros Ansari RCS Brain MRI 10/30/22 07:30 IMPRESSION: 1. Multiple subacute lacunar ischemic infarcts in the inferior semilunar lobule of the right cerebellar hemisphere, right thalamus and in the left centrum semiovale. 2. Multiple old lacunar cystic infarcts in both cerebral hemispheres. 3. Multiple confluent and chronic white matter ischemic changes in both cerebral hemispheres. 4. No abnormally enhancing lesions intra-axially and extra-axially. Electronically Signed: Mukund Landers MD at 15:32 EST , ADDENDUM: 10/30/22 3940 IMPRESSION: 1. Multiple subacute lacunar ischemic infarcts in the inferior semilunar lobule of the right cerebellar hemisphere, right thalamus and in the left centrum semiovale. 2. Multiple old lacunar cystic infarcts in both cerebral hemispheres. 3. Multiple confluent and chronic white matter ischemic changes in both cerebral hemispheres. 4. No abnormally enhancing lesions intra-axially and extra-axially. N.B. : The above Results were Read Back by Mukund Landers MD to Ethel Baker RN, and understanding confirmed on 10/30/2022 16:18:34 (ET). Electronically Signed: Mukund Landers MD at 15:32 EST , Physical Exam Const alert and no apparent distress HEENT head/scalp atraumatic Eyes Eyes Narrative: Left-sided disconjugate gaze Neck supple Resp normal respiratory effort Cardio regular rate and regular rhythm GI soft to palpation, non-tender and non-distended Extremity Extremity Narrative: Moving all extremities Neuro Neuro Narrative: Moving upper and lower extremities equal, main neurological finding is left-sided disconjugate gaze Psych Psych Narrative: Cooperative Assessment & Plan Assessment/Plan (1) Acute CVA (cerebrovascular accident): PLAN: Plan #Acute CVA, likely embolic CTA on admission negative Echo obtained and EF 75%, moderate concentric left ventricular hypertrophy, mild diffuse mitral valve thickening, moderate 2+ eccentric mitral valve insufficiency, diastolic dysfunction indeterminant, bubble study negative MRI obtained which showed multiple subacute lacunar ischemic infarcts on the inferior semilunar lobule of the right cerebellar hemisphere, right thalamus and in the left centrum semiovale with multiple old lacunar cystic infarcts in both cerebral hemispheres. No abnormal enhancement. No A. fib noted on telemetry On aspirin and statin Neurology renotified for further recommendations 10/31: JOHN ordered, on aspirin, statin, Plavix. Working with therapy #Diabetes mellitus, likely type II A1c 12.1 Significantly elevated, will start on 10 units of glargine, as she is low insulin na?ve will split dose for easier titration. 10/31: Increase a.m. insulin #DVT ppx: Josephine Saravia MD Charges/Coding Visit Charges Inpatient E&M: 44242 Subs Hosp L2
[2022-10-31] MEDS: Enoxaparin 40 MG/0.4 ML Syringe SC (09:02)
[2022-10-31] MEDS: Aspirin 81 MG TAB.CHEW PO (09:02)
[2022-10-31] MEDS: Insulin Glargine-YFGN 100 UNIT/ML Pen SC ×2 (09:02→21:34)
[2022-10-31] MEDS: Clopidogrel Bisulfate 75 MG Tablet PO (09:07)
--- NOTE | 2022-10-31 09:19 | NURSING ---
This RN used the immigration judge on the unit tablet to communicate with pt and her . The RN used immigration judge to perform assessment, take vitals and give medications. Explained that JOHN was ordered but unsure when it will occur. Pt and denies any questions or needs at this time.
--- NOTE | 2022-10-31 11:05 | CASEMGMT ---
RN CM NOTE: Per Natasha, ST, OP ST is recommended for speech and cognition eval. Script placed on pt's chart. Will need signed by physician and to be given to pt @ d/c. Ceci BARON RN CM
[2022-10-31 11:40] LABS: Bedside Glucose 357 mg/dL (74-106)
[2022-10-31 17:20] LABS: Bedside Glucose 312 mg/dL (74-106)
[2022-10-31] MEDS: Atorvastatin Calcium 80 MG Tablet PO (21:34)
[2022-10-31 23:45] LABS: Bedside Glucose 263 mg/dL (74-106)
[2022-11-01] VITALS (10 sets, daily range): BP systolic 151–165; BP diastolic 96–110; PULSE 66–105; RESP 16–18; TEMP 36.6–37.4; O2SAT 93–99; BMI 22.6
--- NOTE | 2022-11-01 04:16 | NURSING ---
neuro assessments completed using google sales process manager and assistance. No complaints from patient or .
[2022-11-01] MEDS: Insulin Lispro 100 UNIT/ML INSULN.PEN SC ×4 (06:17→20:58)
[2022-11-01 07:05] LABS: Bedside Glucose 217 mg/dL (74-106)
[2022-11-01 07:33] LABS: Absolute Lymphocyte Count 2.43 X10^3/uL (0.83-4.51); Absolute Neutrophil Count 4.7 X10^3/uL (2.0-7.7); Basophil% 1.3 % (0-1); Eosinophil# 0.41 X10^3/uL; Eosinophils% 5.1 % (0-5); Hematocrit 42.1 % (37-47); Lymphocyte # 2.43 X10^3/ul (0.83-4.51); Lymphocyte % 30.4 % (19-41); Mean Corp Hgb Conc 33.3 g/dL (32-36); Mean Corpuscular Hgb 27.7 pg (27.0-32.0); Mean Corpuscular Volume 83.2 fL (81-99); Mean Platelet Vol. 10.6 fl (6.2-12.0); Monocyte# 0.32 X10^3/uL; NRBC Flagged by Analyzer 0 % (0-5); Neutrophil # 4.71 X10^3/uL (2.7-7.7); Neutrophil % 58.8 % (47-70); Platelet Count 237 K/mm3 (150-450); RBC Distribution Width CV 13.2 % (11.6-14.6); RBC Distribution Width SD 39.3 fl (35.1-43.9); Red Blood Count 5.06 M/mm3 (4.2-5.4)
[2022-11-01 07:54] LABS: Anion Gap 9 (5-15); BUN 17 mg/dL (7-18); BUN/Creat Ratio 22.6 RATIO (10-20); Calcium,Total 8.9 mg/dL (8.5-10.1); Chloride 101 mmol/L (98-107); Creatinine, Serum 0.75 mg/dL (0.55-1.02); EST Glomerular Filtration Rate 87 mL/min (>60); Est Glom Filt Rate - Afr Amer 105 mL/min (>60); Estimated Creatinine Clearance 68.47 ml/min; Glucose 219 mg/dL (74-106); Potassium 3.3 mmol/L (3.5-5.1); Sodium Level 134 mmol/L (136-145)
[2022-11-01] MEDS: Enoxaparin 40 MG/0.4 ML Syringe SC (09:33)
[2022-11-01] MEDS: Clopidogrel Bisulfate 75 MG Tablet PO (09:33)
[2022-11-01] MEDS: Insulin Glargine-YFGN 100 UNIT/ML Pen 8 UNIT SC ×2 (09:33→20:58)
[2022-11-01] MEDS: Aspirin 81 MG TAB.CHEW PO (09:33)
--- NOTE | 2022-11-01 10:26 | PN.HOSP_ITS ---
Subjective Subjective Vision is slowly improving, no new numbness or weakness. Overall beginning to feel better. Objective Data Objective Data Vital Signs: Vital Signs Temp Pulse Resp BP Pulse Ox O2 Del Method 98.5 F 77 18 155/108 H 96 Room Air 11/01/22 08:00 11/01/22 08:00 11/01/22 08:00 11/01/22 08:00 11/01/22 08:00 11/01/22 09:00 Oxygen Delivery Method Room Air Weight: 55.4 kg Body Mass Index (BMI) 22.6 Intake & Output: Intake and Output for Last 24 Hours 10/30/22 10/31/22 11/01/22 23:59 23:59 23:59 Intake Total 1683.33 / 1683.33 800 / 800 Balance 1683.33 / 1683.33 800 / 800 Lab / Micro Data Result Diagrams: 11/01/22 06:55 11/01/22 06:55 Labs: Laboratory Results - last 24 hr 10/31/22 11:13: POC Glucose 357 H 10/31/22 16:41: POC Glucose 312 H 10/31/22 21:33: POC Glucose 263 H 11/01/22 06:16: POC Glucose 217 H 11/01/22 06:55: WBC 8.0, RBC 5.06, Hgb 14.0, Hct 42.1, MCV 83.2, MCH 27.7, MCHC 33.3, RDW Std Deviation 39.3, RDW Coeff of Naresh 13.2, Plt Count 237, MPV 10.6, Immature Gran % (Auto) 0.400, Neut % (Auto) 58.8, Lymph % (Auto) 30.4, [place] % (Auto) 4.0, Eos % (Auto) 5.1 H, Baso % (Auto) 1.3 H, Absolute Neuts (auto) 4.7, Absolute Lymphs (auto) 2.43, Nucleated RBC % 0 11/01/22 06:55: Sodium 134 L, Potassium 3.3 L, Chloride 101, Carbon Dioxide 24.0, Anion Gap 9, BUN 17, Creatinine 0.75, Estim Creat Clear Calc 68.47, Est GFR (MDRD) Af Amer 105, Est GFR (MDRD) Non-Af 87, BUN/Creatinine Ratio 22.6 H, Glucose 219 H, Calcium 8.9 Physical Exam Const alert and no apparent distress HEENT head/scalp atraumatic Eyes Eyes Narrative: Left-sided disconjugate gaze Neck supple Resp normal respiratory effort Cardio regular rate and regular rhythm GI soft to palpation, non-tender and non-distended Extremity Extremity Narrative: Moving all extremities Neuro Neuro Narrative: Moving upper and lower extremities equal, main neurological finding is left- sided disconjugate gaze Psych Psych Narrative: Cooperative Assessment & Plan Assessment/Plan (1) Acute CVA (cerebrovascular accident): PLAN: Plan #Acute CVA, likely embolic CTA on admission negative Echo obtained and EF 75%, moderate concentric left ventricular hypertrophy, mild diffuse mitral valve thickening, moderate 2+ eccentric mitral valve i nsufficiency, diastolic dysfunction indeterminant, bubble study negative MRI obtained which showed multiple subacute lacunar ischemic infarcts on the inferior semilunar lobule of the right cerebellar hemisphere, right thalamus and in the left centrum semiovale with multiple old lacunar cystic infarcts in both cerebral hemispheres. No abnormal enhancement. No A. fib noted on telemetry On aspirin and statin Neurology renotified for further recommendations 10/31: JOHN ordered, on aspirin, statin, Plavix. Working with therapy 11/01: Will likely do outpatient therapy, awaiting JOHN, continue aspirin, Plavix, statin #Diabetes mellitus, likely type II A1c 12.1 Significantly elevated, will start on 10 units of glargine, as she is low insulin na?ve will split dose for easier titration. 10/31: Increase a.m. insulin 11/01: Further adjust insulin #DVT ppx: Josephine Saravia MD Charges/Coding Visit Charges Inpatient E&M: 90881 Subs Hosp L2
[2022-11-01] MEDS: Potassium Chloride Oral Tablet 20 MEQ 40 MEQ PO (11:41)
[2022-11-01 16:16] LABS: Bedside Glucose 282 mg/dL (74-106)
[2022-11-01 16:50] LABS: Bedside Glucose 283 mg/dL (74-106)
[2022-11-01] MEDS: Atorvastatin Calcium 80 MG Tablet PO (20:57)
[2022-11-01] MEDS: 0.9% Saline Lock 10 ML Syringe IV (21:02)
[2022-11-01 22:35] LABS: Bedside Glucose 267 mg/dL (74-106)
[2022-11-02] VITALS (10 sets, daily range): BP systolic 140–164; BP diastolic 97–113; PULSE 71–89; RESP 12–18; TEMP 36.6–36.8; O2SAT 95–98; BMI 22.6
[2022-11-02 06:40] LABS: Bedside Glucose 213 mg/dL (74-106)
[2022-11-02 08:35] LABS: Absolute Lymphocyte Count 3.21 X10^3/uL (0.83-4.51); Absolute Neutrophil Count 5.9 X10^3/uL (2.0-7.7); Basophil# 0.11 X10^3/uL; Basophil% 1.1 % (0-1); Eosinophil# 0.49 X10^3/uL; Eosinophils% 4.8 % (0-5); Hematocrit 45.1 % (37-47); Hemoglobin 14.8 g/dL (12.0-15.0); Lymphocyte # 3.21 X10^3/ul (0.83-4.51); Lymphocyte % 31.7 % (19-41); Mean Corp Hgb Conc 32.8 g/dL (32-36); Mean Corpuscular Hgb 27.6 pg (27.0-32.0); Mean Corpuscular Volume 84.1 fL (81-99); Mean Platelet Vol. 10.4 fl (6.2-12.0); Monocyte% 3.9 % (0-10); NRBC Flagged by Analyzer 0 % (0-5); Neutrophil # 5.87 X10^3/uL (2.7-7.7); Platelet Count 266 K/mm3 (150-450); RBC Distribution Width CV 13.2 % (11.6-14.6); RBC Distribution Width SD 40.5 fl (35.1-43.9); Red Blood Count 5.36 M/mm3 (4.2-5.4); White Blood Count 10.1 K/mm3 (4.4-11.0)
[2022-11-02] MEDS: Aspirin 81 MG TAB.CHEW PO (08:47)
[2022-11-02] MEDS: Clopidogrel Bisulfate 75 MG Tablet PO (08:47)
[2022-11-02] MEDS: Insulin Glargine-YFGN 100 UNIT/ML Pen 8 UNIT SC ×2 (08:48→20:41)
[2022-11-02] MEDS: Enoxaparin 40 MG/0.4 ML Syringe SC (08:48)
[2022-11-02 09:01] LABS: ALB/GLOB Ratio 0.7 RATIO (0.9-2.4); AST(SGOT) 43 U/L (15-37); Alanine Aminotransfer ALT/SGPT 59 U/L (13-56); Albumin, Serum 3.1 g/dL (3.2-5.0); Alkaline Phosphatase 82 U/L (45-117); Anion Gap 6 (5-15); BUN 19 mg/dL (7-18); BUN/Creat Ratio 23.1 RATIO (10-20); Calcium,Total 8.9 mg/dL (8.5-10.1); Chloride 104 mmol/L (98-107); Creatinine, Serum 0.82 mg/dL (0.55-1.02); EST Glomerular Filtration Rate 78 mL/min (>60); Est Glom Filt Rate - Afr Amer 95 mL/min (>60); Estimated Creatinine Clearance 62.62 ml/min; Globulin 4.6 g/dL (2.2-4.2); Glucose 216 mg/dL (74-106); Potassium 3.6 mmol/L (3.5-5.1); Protein, Total 7.7 g/dL (6.4-8.2); Sodium Level 135 mmol/L (136-145)
[2022-11-02] MEDS: Insulin Lispro 100 UNIT/ML INSULN.PEN SC ×3 (11:21→20:41)
[2022-11-02 12:10] LABS: Bedside Glucose 385 mg/dL (74-106)
[2022-11-02 17:31] LABS: Bedside Glucose 185 mg/dL (74-106)
--- NOTE | 2022-11-02 17:53 | PN.HOSP_ITS ---
Subjective Subjective Follow-up on Acute CVA: Patient denied any new complaint. She was supposed to have a JOHN but unfortunately she ate today. Questions were answered to the patient through the [employer] school commissioner. Objective Data Objective Data Vital Signs: Vital Signs Temp Pulse Resp BP Pulse Ox O2 Del Method 97.8 F 72 12 140/97 H 95 Room Air 11/02/22 14:20 11/02/22 15:19 11/02/22 14:20 11/02/22 14:20 11/02/22 14:20 11/02/22 14:32 Oxygen Delivery Method Room Air Weight: 58.1 kg Body Mass Index (BMI) 22.6 Intake & Output: Intake and Output for Last 24 Hours 10/31/22 11/01/22 11/02/22 23:59 23:59 23:59 Intake Total 800 / 800 800 / 800 800 / 800 Balance 800 / 800 800 / 800 800 / 800 Lab / Micro Data Result Diagrams: 11/02/22 07:40 11/02/22 07:40 Labs: Laboratory Results - last 24 hr 11/01/22 20:56: POC Glucose 267 H 11/02/22 06:12: POC Glucose 213 H 11/02/22 07:40: WBC 10.1, RBC 5.36, Hgb 14.8, Hct 45.1, MCV 84.1, MCH 27.6, MCHC 32.8, RDW Std Deviation 40.5, RDW Coeff of Naresh 13.2, Plt Count 266, MPV 10.4, Immature Gran % (Auto) 0.500, Neut % (Auto) 58.0, Lymph % (Auto) 31.7, [place] % (Auto) 3.9, Eos % (Auto) 4.8, Baso % (Auto) 1.1 H, Absolute Neuts (auto) 5.9, Absolute Lymphs (auto) 3.21, Nucleated RBC % 0 11/02/22 07:40: Sodium 135 L, Potassium 3.6, Chloride 104, Carbon Dioxide 25.0, Anion Gap 6, BUN 19 H, Creatinine 0.82, Estim Creat Clear Calc 62.62, Est GFR (MDRD) Af Amer 95, Est GFR (MDRD) Non-Af 78, BUN/Creatinine Ratio 23.1 H, Glucose 216 H, Calcium 8.9, Total Bilirubin 0.70, AST 43 H, ALT 59 H, Alkaline Phosphatase 82, Total Protein 7.7, Albumin 3.1 L, Globulin 4.6 H, Albumin/Globulin Ratio 0.7 L 11/02/22 11:20: POC Glucose 385 H 11/02/22 16:51: POC Glucose 185 H Physical Exam Narrative Physical exam: General: Alert, Oriented x3, Cooperative HEENT: Atraumatic Oral: Moist Mucosa Neck: Supple Lungs: Clear to auscultation Cardiovascular: HS I+II, regular, no murmurs Abdomen: Bowel Sounds Present, Soft, Non Tender Extremities: No edema Skin: No rashes, No breakdown Neurological: Grossly intact Psych/Mental Status: Appropriate Assessment & Plan Assessment/Plan (1) Acute CVA (cerebrovascular accident): PLAN: Plan 1. Acute CVA, multiple subacute lacunar infarcts in the inferior semilunar lobe with noted right cerebellar hemisphere, right abnormal and left centrum ovale, seen on MRI of the brain CTA of the head and neck was unremarkable 2D echo showed EF of 75%, LVH, +2 mitral insufficiency, bubble study negative for [id number] intra-atrial shunt Triglycerides 1661, total cholesterol 293, LDL very high, HDL 43, TSH 1.28 Continue on aspirin, statin, Plavix 2. Type II DM, HbA1c is 12.1, blood sugars are fairly controlled, Continue on Lantus 8 units twice daily, as well as insulin sliding scale 3. Dyslipidemia, uncontrolled, continue on statin 4. DVT prophylaxis Lovenox subcu Charges/Coding Visit Charges Inpatient E&M: 23477 Subs Hosp L2
[2022-11-02] MEDS: Atorvastatin Calcium 80 MG Tablet PO (20:43)
[2022-11-02] MEDS: Senna/Docusate Sodium 1 Tablet 2 TABLET PO (20:49)
[2022-11-02 22:26] LABS: Bedside Glucose 340 mg/dL (74-106)
[2022-11-03] VITALS (8 sets, daily range): BP systolic 130–158; BP diastolic 95–106; PULSE 64–94; RESP 14–16; TEMP 36.4–36.6; O2SAT 94–100; BMI 22.6
[2022-11-03 07:26] LABS: Bedside Glucose 152 mg/dL (74-106)
--- NOTE | 2022-11-03 08:04 | ECHOTEE_ITS ---
Reason For Study: TIA/CVA Medication JOHN probe 6VT-D (SN [id number]) passed with minimal difficulty. No complications were noted. Cetacaine Topical [place] given X3 orally. Versed 1 mg given slow IVP. Fentanyl 50 mcg given slow IVP. Performed a rapid injection of agitated mix of 9 cc saline and 1cc air to assess for atrial septal defect. Left Ventricle Normal LV size. Left ventricular systolic function is normal. The estimated ejection fraction is 65 %. No regional wall motion abnormalities noted. Right Ventricle Normal RV size. Normal systolic function. Atria No doppler evidence for ASD. Bubble contrast study negative for right to left interatrial shunt. Normal left atrium. There is no sponatenous contrast in the left atrium. No thrombus is detected in the left atrial appendage. Normal right atrium. There is no sponatenous contrast in the right atrium. No right atrial/appendage thrombus identified. Mitral Valve There is no mitral annular calcification. Mild diffuse mitral valve thickening. Mild (1+) mitral valve insufficiency. Tricuspid Valve Normal tricuspid valve. Trivial tricuspid valve insufficiency. Aortic Valve Trisinus/trileaflet aortic valve. Normal aortic valve. Pulmonic Valve The pulmonic valve is not well visualized. Vessels Normal-appearing thoracic aorta. Pericardium No pericardial effusion. Patient Safety Patient does not speak turkmen. All communication and instruction was done through phone translation services. ECHO/Echo Transesophageal (JOHN) Interpretation Summary Left ventricular systolic function is normal. The estimated ejection fraction is 65 %. There is no sponatenous contrast in the left atrium. No thrombus is detected in the left atrial appendage. Mild diffuse mitral valve thickening. Mild (1+) mitral valve insufficiency. Trivial tricuspid valve insufficiency. Bubble contrast study negative for right to left interatrial shunt. Ordering Physician: Adia Saravia Referring Physician: No PCP Noted Performed By: Eros Ansari RCS
--- NOTE | 2022-11-03 08:52 | DCINST_ITS ---
Discharge Instructions Diet Discharge Diet: Low fat / Low cholesterol, 1800 Calorie Control Diet and 2000 mg Sodium Diet Activity Discharge Activity: Return to Normal Activity Follow Up Care Test Results: Test results from this visit will be discussed in further detail at your follow- up appointment, if applicable. Discharge Plan Admission Admit Date/Time: 10/29/22 22:09 Primary Reason for Your Visit: Acute stroke Attending Provider: Eleni Huang Primary Care Provider: Care Physician,No Primary Consulting Providers: Gali Gasca ; Adia Saravia Instructions Additional Instructions / Restrictions: Take note of changes to your medications Continue to check your blood sugars 3 times a day. Follow-up with outpatient speech therapy, physical and occupational therapy Follow-up with Neurology within 1 month Follow-up with primary care doctor within 1 week Discharge Orders/Prescriptions Prescriptions: New (DME) pen needle, diabetic 30 gauge x 5/16 needle See Rx Instructions .ROUTE Qty: 100 0RF Rx Instructions: As directed atorvastatin 80 mg Tablet 80 mg PO QHS 30 Days Qty: 30 0RF lisinopril 20 mg Tablet 20 mg PO DAILY 30 Days Qty: 30 0RF clopidogrel 75 mg Tablet 75 mg PO DAILY 30 Days Qty: 30 0RF aspirin 81 mg Tablet,Chewable 81 mg PO BREAKFAST 30 Days Qty: 30 0RF insulin glargine-yfgn 100 unit/mL (3 mL) Insulin Pen 8 unit subcut BIDCM 30 Days Qty: 4.8 0RF Other Ambulatory Orders: Glucometer (Routine) Timeframe: 1 Day Location: Determined by Patient Ordered By: Dr. Eleni Huang Referrals / Follow Up: Manny Chaudhry MD [Non-Staff -Ordering Privileges] - Within 1 Month Care Physician,No Primary [Primary Care Provider] - Within 1 Week Disposition Disposition (needs filled in before D/C Order can be placed): Home, Self Care
[2022-11-03 09:59] LABS: Absolute Lymphocyte Count 2.26 X10^3/uL (0.83-4.51); Absolute Neutrophil Count 5.8 X10^3/uL (2.0-7.7); Basophil% 1.1 % (0-1); Eosinophil# 0.39 X10^3/uL; Eosinophils% 4.3 % (0-5); Hematocrit 39.3 % (37-47); Hemoglobin 13.5 g/dL (12.0-15.0); Lymphocyte # 2.26 X10^3/ul (0.83-4.51); Lymphocyte % 25.2 % (19-41); Mean Corp Hgb Conc 34.4 g/dL (32-36); Mean Corpuscular Hgb 28.2 pg (27.0-32.0); Mean Platelet Vol. 10.3 fl (6.2-12.0); Monocyte# 0.38 X10^3/uL; Monocyte% 4.2 % (0-10); NRBC Flagged by Analyzer 0 % (0-5); Neutrophil # 5.78 X10^3/uL (2.7-7.7); Neutrophil % 64.5 % (47-70); Platelet Count 237 K/mm3 (150-450); RBC Distribution Width CV 13.3 % (11.6-14.6); Red Blood Count 4.79 M/mm3 (4.2-5.4)
[2022-11-03 10:31] LABS: ALB/GLOB Ratio 0.6 RATIO (0.9-2.4); AST(SGOT) 32 U/L (15-37); Alanine Aminotransfer ALT/SGPT 58 U/L (13-56); Albumin, Serum 2.7 g/dL (3.2-5.0); Alkaline Phosphatase 69 U/L (45-117); Anion Gap 9 (5-15); BUN 15 mg/dL (7-18); BUN/Creat Ratio 22.2 RATIO (10-20); Calcium,Total 8.4 mg/dL (8.5-10.1); Chloride 103 mmol/L (98-107); Creatinine, Serum 0.68 mg/dL (0.55-1.02); EST Glomerular Filtration Rate 98 mL/min (>60); Est Glom Filt Rate - Afr Amer 119 mL/min (>60); Estimated Creatinine Clearance 75.52 ml/min; Globulin 4.2 g/dL (2.2-4.2); Glucose 222 mg/dL (74-106); Potassium 3.8 mmol/L (3.5-5.1); Protein, Total 6.9 g/dL (6.4-8.2); Sodium Level 137 mmol/L (136-145)
[2022-11-03] MEDS: Enoxaparin 40 MG/0.4 ML Syringe SC (12:17)
[2022-11-03] MEDS: Clopidogrel Bisulfate 75 MG Tablet PO (12:17)
[2022-11-03] MEDS: Aspirin 81 MG TAB.CHEW PO (12:17)
[2022-11-03] MEDS: Lisinopril 20 MG Tablet PO (12:17)
[2022-11-03] MEDS: Insulin Glargine-YFGN 100 UNIT/ML Pen 8 UNIT SC ×3 (12:18→18:59)
[2022-11-03] MEDS: Insulin Lispro 100 UNIT/ML INSULN.PEN SC ×2 (12:18→17:47)
[2022-11-03 12:45] LABS: Bedside Glucose 194 mg/dL (74-106)
--- NOTE | 2022-11-03 14:14 | CASEMGMT ---
RN CARI called [facility] and spoke with Hannah to schedule new patient appt. Per Hannah, she will need to arrange for an barrel raiser helper and will call this RN CM with appt. CM will continue to follow this patient and plan for a safe discharge.
--- NOTE | 2022-11-03 15:41 | DS.PCM_ITS ---
Providers Date of Admission: 10/29/22 Date of Discharge: 11/03/22 Primary Care Physician: No Primary Care Phys Reason For Visit: CVA Diagnosis Discharge Diagnosis (1) Acute CVA (cerebrovascular accident): Status: Acute Code(s): I63.9 - Cerebral infarction, unspecified Plan 1. Acute cardioembolic CVA 2. Type II DM 3. Dyslipidemia Medications at Discharge Home Medications aspirin 81 mg chewable tablet 81 mg PO BREAKFAST 30 days #30 tabs 11/03/22 atorvastatin 80 mg tablet 80 mg PO QHS 30 days #30 tabs 11/03/22 clopidogrel 75 mg tablet 75 mg PO DAILY 30 days #30 tabs 11/03/22 insulin glargine-yfgn 100 unit/mL (3 mL) subcutaneous pen 8 unit (0.08 mL) subcut BIDCM 30 days #4.8 mL 11/03/22 lisinopril 20 mg tablet 20 mg PO DAILY 30 days #30 tabs 11/03/22 pen needle, diabetic 30 gauge x 5/16 #100 ea 11/03/22 Hospital Course Operations None Procedures 2-D Echocardiogram and Transesophageal Echo Summary of Care Provided Minutes Spent on Discharge: 35 Hospital Course: 47-year-old female with past medical history hypertension, type II DM, who recently moved to [place], patient speaks English. Patient presented with acute onset of left-sided weakness 7 to 8 hours prior to admission. Her initial NIHSS was 3. She had partial gaze palsy, limb ataxia and mild to moderate dysarthria. Her vitals showed elevated blood pressure. CT of the brain showed no acute intracranial abnormality. CT of the head was unremarkable. EKG showed no acute ST-T changes. Patient was admitted to the progressive care unit and managed as acute stroke. MRI of the brain showed multiple subacute lacunar ischemic infarcts on the inferior semilunar level of the right cerebellar hemisphere, right thalamus, left centrum semiovale. There was no A. fib on telemetry. 2D echo showed EF of 75%, indeterminate systolic dysfunction, no valvular abnormality or PFO. Her blood work showed Triglycerides 1661, total cholesterol 293, LDL very high, HDL 43, TSH 1.28. HbA1c was 12.1 Telemetry neuro surgery was consulted and recommended aspirin and Plavix as well as statin. JOHN was also recommended. Patient underwent JOHN that was unremarkable. She was discharged on aspirin, Plavix, statin, and she was also discharged on insulin with glucose meter. A 30-day event monitor was also prescribed at discharge. Patient will need to follow-up with a primary care doctor within 1 week. She will establish with 1. She also need to follow-up with neurology in the outpatient within 1 month. Communication with patient and spouse at the bedside was through the [employer] site interpreter as patient and the spouse spoke English. Physical Exam Narrative Physical exam: General: Alert, Oriented x3, Cooperative HEENT: Atraumatic Oral: Moist Mucosa Neck: Supple Lungs: Clear to auscultation Cardiovascular: HS I+II, regular, no murmurs Abdomen: Bowel Sounds Present, Soft, Non Tender Extremities: No edema Skin: No rashes, No breakdown Neurological: Slight left facial droop, but is 5/5 in all extremities, normal t one Psych/Mental Status: Appropriate Weight / BMI Weight Weight: 58.1 kg Body Mass Index (BMI) 22.6 ABG / Lab / Microbiology Data Result Diagrams: 11/03/22 09:40 11/03/22 09:40 Laboratory: Laboratory Results - last 24 hr 11/02/22 16:51: POC Glucose 185 H 11/02/22 20:40: POC Glucose 340 H 11/03/22 07:01: POC Glucose 152 H 11/03/22 09:40: WBC 9.0, RBC 4.79, Hgb 13.5, Hct 39.3, MCV 82.0, MCH 28.2, MCHC 34.4, RDW Std Deviation 40.0, RDW Coeff of Naresh 13.3, Plt Count 237, MPV 10.3, Immature Gran % (Auto) 0.700, Neut % (Auto) 64.5, Lymph % (Auto) 25.2, [place] % (A uto) 4.2, Eos % (Auto) 4.3, Baso % (Auto) 1.1 H, Absolute Neuts (auto) 5.8, A bsolute Lymphs (auto) 2.26, Nucleated RBC % 0 11/03/22 09:40: Sodium 137, Potassium 3.8, Chloride 103, Carbon Dioxide 25.0, Anion Gap 9, BUN 15, Creatinine 0.68, Estim Creat Clear Calc 75.52, Est GFR (MDRD) Af Amer 119, Est GFR (MDRD) Non-Af 98, BUN/Creatinine Ratio 22.2 H, Glucose 222 H, Calcium 8.4 L, Total Bilirubin 0.60, AST 32, ALT 58 H, Alkaline Phosphatase 69, Total Protein 6.9, Albumin 2.7 L, Globulin 4.2, Albumin/Globulin Ratio 0.6 L 11/03/22 12:16: POC Glucose 194 H Radiography Diagnostic Testing: Radiology Impression Transesophageal Echocardiogram 11/03/22 08:04 Interpretation Summary Left ventricular systolic function is normal. The estimated ejection fraction is 65 %. There is no sponatenous contrast in the left atrium. No thrombus is detected in the left atrial appendage. Mild diffuse mitral valve thickening. Mild (1+) mitral valve insufficiency. Trivial tricuspid valve insufficiency. Bubble contrast study negative for right to left interatrial shunt. Ordering Physician: Adia Saravia Referring Physician: No PCP Noted Performed By: Eros Ansari RCS D/C Instructions Discharge Diet: Low fat / Low cholesterol, 1800 Calorie Control Diet and 2000 mg Sodium Diet Meaningful Use Info Meaningful Use Diagnoses (Choose all that apply): Ischemic CVA CVA Therapy Assessed for PT,OT and/or ST?: Yes Ischemic Stroke Antithrombotic order at d/c?: Yes Dx of Atrial fib/flutter?: No Anticoagulant at discharge?: No Reason anticoagulant not ordered: Treatment not Indicated Statins at discharge?: Yes Primary Dx Acute Ischemic CVA?: Yes IV tPA ordered during stay?: No Reason IV t-PA not ordered: Procedure not Indicated Discharge Plan Admission Admit Date/Time: 10/29/22 22:09 Primary Reason for Your Visit: Acute stroke Attending Provider: Eleni Huang Primary Care Provider: Care Physician,No Primary Consulting Providers: Gali Gasca ; Adia Saravia Instructions Additional Instructions / Restrictions: Take note of changes to your medications Continue to check your blood sugars 3 times a day. Follow-up with outpatient speech therapy, physical and occupational therapy Follow-up with Neurology within 1 month Follow-up with primary care doctor within 1 week Discharge Orders/Prescriptions Prescriptions: New (DME) pen needle, diabetic 30 gauge x 5/16 needle See Rx Instructions .ROUTE Qty: 100 0RF Rx Instructions: As directed atorvastatin 80 mg Tablet 80 mg PO QHS 30 Days Qty: 30 0RF lisinopril 20 mg Tablet 20 mg PO DAILY 30 Days Qty: 30 0RF clopidogrel 75 mg Tablet 75 mg PO DAILY 30 Days Qty: 30 0RF aspirin 81 mg Tablet,Chewable 81 mg PO BREAKFAST 30 Days Qty: 30 0RF insulin glargine-yfgn 100 unit/mL (3 mL) Insulin Pen 8 unit subcut BIDCM 30 Days Qty: 4.8 0RF Other Ambulatory Orders: 30 Day Event Recorder Preventi (Urgent) Timeframe: 1 Day Facility: [facility] - Location: Cardiovascular Services Ordered By: Dr. Eleni Huang Glucometer (Routine) Timeframe: 1 Day Location: Determined by Patient Ordered By: Dr. Eleni Huang Referrals / Follow Up: [facility] [Outside] - Within 1 Week (Call to schedule an appt when you have an hourly sign language interpreter arranged. ) Manny Chaudhry MD [Non-Staff -Ordering Privileges] - Within 1 Month Disposition Disposition (needs filled in before D/C Order can be placed): Home, Self Care Charges/Coding Visit Charges Inpatient E&M: 15801 Disch Hosp >30min
--- NOTE | 2022-11-03 16:15 | CASEMGMT ---
JAREN ALCALA called Hannah at [facility] to inquire about follow-up appt. Per Hannah they are unable to find an seismic interpreter for patient and family will need to arrange for one. JAREN ALCALA called sister Martha number on chart. She will arrange for someone to attend appointment and call [facility] to arrange appointment. Patient is unable to afford prescription and [facility] RX assistance completed with authorization to provide glucometer as well. JAREN ALCALA called Hannah at [facility] and left message with sister Martha's number. JAREN ALCALA updated nurse JAREN Esparza.
[2022-11-03 17:56] LABS: Bedside Glucose 245 mg/dL (74-106)
[2022-11-03] MEDS: Atorvastatin Calcium 80 MG Tablet PO (18:58)
--- NOTE | 2022-11-03 19:58 | NURSING ---
reviewed diabetes how to take blood sugars/ s/s of blood sugars/ all new meds how to give insulin shots . stroke f/u care appointments/ therapy/ 30 day monitor with translator/interpreter on phone and he demonstrated understanding has a brother that speaks both lanquages that will go with them to md appointment per
== END 2022-11-03 19:34 | disposition home or self-care (01) | DRG 65 ==
LOC: ED 22:07 → PCU 22:36
PROVIDERS: Internal Medicine; Internal Medicine Cardiovascular Disease; Admitting Provider Family Medicine; Emergency Provider Emergency Medicine; Visit Provider Internal Medicine
DX: I63.9 Cerebral infarction, unspecified (principal); E87.1 Hypo-osmolality and hyponatremia; G81.94 Hemiplegia, unspecified affecting left nondominant side; E87.8 Other disorders of electrolyte and fluid balance, not elsewhere classified; E11.65 Type 2 diabetes mellitus with hyperglycemia; Z79.4 Long term (current) use of insulin; F17.210 Nicotine dependence, cigarettes, uncomplicated; I10 Essential (primary) hypertension; E78.5 Hyperlipidemia, unspecified; I34.0 Nonrheumatic mitral (valve) insufficiency; Z79.02 Long term (current) use of antithrombotics/antiplatelets; Z79.82 Long term (current) use of aspirin
CPT/HCPCS: 36415; 70450; 70496; 70498; 70553; 71045; 80048; 80053; 80061; 82962; 83036; 83735; 84443; 84484; 85025; 85610; 85730; 87635; 92507; 92523; 92526; 92610; 93005; 93306; 93312; 93320; 93325; 97110; 97116; 97162; 97166; 97530; 97535; 97802; 99285; A9575; J7030; J7040; Q9967; A4216; U0003; U0005

== ENCOUNTER → 2022-11-17 | Outpatient (CLI) | payer SELFPAY | END | disposition home or self-care (01) | DX: Z86.73 Personal history of transient ischemic attack (TIA), and cerebral infarction without residual deficits (principal) | CPT/HCPCS: 36415 ==